=== PATIENT | male | born 1965 | race Caucasian/White ===

== ENCOUNTER 2023-06-09 06:19 | Day surgery (SDC) | payer BC, SELFPAY ==
[2023-05-31 13:25] VITALS: BMI 29.0
[2023-06-09] VITALS (8 sets, daily range): BP systolic 125–146; BP diastolic 76–85; BMI 29.0
[2023-06-09] MEDS: TYLENOL 1000 MG PO (06:37)
[2023-06-09 06:45] LABS: Glucose - Point of Care 170 mg/dl (70-99)
[2023-06-09] MEDS: NORMOSOL-R/PLASMALYTE-A 1000 IV (06:45)
--- NOTE | 2023-06-09 06:59 | HP.FOC2 ---
Focused History & Physical
Chief Complaint
HPI:
Chief Complaint: Right inguinal swelling
HPI / Indication for Planned Procedure: 58-year-old male recently seen in outpatient surgical evaluation secondary to a few month history of intermittent swelling and discomfort in the right inguinal region. 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
cavity complex.
Hernia protuberant. He has an awareness of the hernia being present but no significant pain or discomfort.
Relevant Past Medical History: Other (Hypertension, high cholesterol, diabetes and allergic rhinitis)
Relevant Social History: Negative
Relevant Family History: Negative
Relevant Past Surgical History: Positive for (Appendectomy, left shoulder tendon repair)
Review of Systems
Review of Pertinent Systems: All Systems Negative
Medication
See Medication form for detailed medications: Yes
Medication List (including Herbals & OTC):
aspirin 81 mg chewable tablet 81 mg PO DAILY 06/07/23
atorvastatin 80 mg tablet 80 mg PO DAILY 06/07/23
ezetimibe 10 mg tablet 10 mg PO DAILY 06/07/23
fluticasone propionate 50 mcg/actuation nasal spray,suspension 1 spray intranasal DAILY 06/07/23
glimepiride 2 mg tablet 2 mg PO DAILY 06/07/23
lisinopril 10 mg tablet 10 mg PO DAILY 06/07/23
metformin 1,000 mg tablet 1,000 mg PO BID 06/07/23
montelukast 10 mg tablet 10 mg PO DAILY 06/07/23
multivitamin 1 tab PO DAILY 06/07/23
Medications Reviewed: Yes
Allergies and Reactions
Patient has Allergies: No
Noted Allergies and Reactions:
Allergy/AdvReac Type Severity Reaction Status Date / Time
No Known Allergies Allergy Verified 06/09/23 06:22
Pertinent Physical Exam
All Other Systems: Negative
Head/Neck: Normal
Lungs: Normal
Heart: Normal
Abdomen: Other (Right inguinal hernia)
Extremities: Normal
Neurological: Normal
Diagnosis / Assessment
58-year-old male presenting for scheduled operative correction symptomatic right inguinal hernia
Plan / Procedure
Robotic assisted laparoscopic repair of right inguinal hernia with mesh
Anesthesia/Sedation to be done by Anesthesia Provider: Yes
--- NOTE | 2023-06-09 07:01 | W.SUR.PREOP ---
Pre-Operative Surgical Note
-
I have examined this patient prior to the performance of the scheduled procedure.
The patient's condition is unchanged from the time of the current History and
Physical and the patient is able to undergo the scheduled procedure.
--- NOTE | 2023-06-09 08:58 | W.IMMPOSTOP ---
Addendum entered and electronically signed by Bartolo Collier MD 06/09/23 09:07:
#[id number]
Original Note:
Surgical Immed Post Op Note
-
Primary Surgeon: Amira
Assisting Surgeon: Butch REYES
Pre-op Diagnosis: RIH
Post-op Diagnosis: RIH - indirect
Procedure Performed: RAL JAMIL RIH repair with mesh; 3d max large mid
Anesthesia Type: GETA + 0.25 %Marcaine
Specimen / Cultures: none
Estimated Blood Loss: 6mL
Complications: none immediate
Operative Findings: Moderate-sized right indirect inguinal hernia. Numerous adhesions to pelvis and right lower quadrant. Only omental adhesions lysed for exposure down to the right inguinal region. Indirect inguinal hernia. No lipoma of cord.
3D max large mid weight mesh repair.
[2023-06-09 09:16] LABS: Glucose - Point of Care 192 mg/dl (70-99)
== END 2023-06-09 10:45 | disposition home or self-care (01) ==
LOC: SDS 06:19
PROVIDERS: ATTENDING PHYSICIAN Surgery; FAMILY PHYSICIAN Nurse Practitioner Family
DX: K40.90 Unilateral inguinal hernia, without obstruction or gangrene, not specified as recurrent (principal)
CPT/HCPCS: 49650; 36415; 82962; 93005; C1781

== ENCOUNTER → 2025-03-10 14:42 | Outpatient (REF) | payer BC, SELFPAY | LOC: HWRAD 14:42 | PROVIDERS: ATTENDING PHYSICIAN Nurse Practitioner Family | DX: R22.30 Localized swelling, mass and lump, unspecified upper limb (principal) | CPT/HCPCS: 73030 ==

== ENCOUNTER → 2025-04-01 16:13 | Outpatient (REF) | payer BC, SELFPAY | LOC: RAD 16:13 | PROVIDERS: ATTENDING PHYSICIAN Nurse Practitioner Family | DX: R22.30 Localized swelling, mass and lump, unspecified upper limb (principal) | CPT/HCPCS: 76882 ==